=== PATIENT | female | born 1985 | race Caucasian/White ===

== ENCOUNTER 2018-04-15 12:21 | Emergency (ER) | payer OTHER, SELFPAY ==
--- NOTE | 2018-04-15 14:31 | RAD ---
TWO VIEWS LEFT FOREARM: History: Patient with left forearm pain. FINDINGS: AP and lateral views of the left forearm obtained. No evidence of left forearm fractures, subluxation s, or bony lesions seen. IMPRESSION: Normal two views left forearm. POS: C
--- NOTE | 2018-04-15 14:32 | RAD ---
THREE VIEWS LEFT WRIST: History: Pain. FINDINGS: AP, lateral, and oblique views of the left wrist obtained. There is no evidence of left wrist fractur es, subluxations, or bony lesions. IMPRESSION: Normal three views left wrist. POS: C
== END 2018-04-15 14:44 | disposition home or self-care (01) ==
LOC: ERS 12:21
DX: S46.912A Strain of unspecified muscle, fascia and tendon at shoulder and upper arm level, left arm, initial encounter (principal); M77.9 Enthesopathy, unspecified; X50.0XXA Overexertion from strenuous movement or load, initial encounter

== ENCOUNTER 2019-07-19 05:25 | Inpatient (IN) | payer OTHER ==
[2019-07-19] MEDS ORDERED: Ondansetron PF 4 MG/2 ML Vial IVP PRN ×3 (05:47→10:06)
[2019-07-19] MEDS ORDERED: Promethazine HCl 25 MG/ML VIAL IM PRN ×2 (05:47→08:12)
[2019-07-19] MEDS ORDERED: hydrALAZINE 20 MG/ML VIAL SLOW IVP PRN ×2 (05:47→10:06)
[2019-07-19] MEDS ORDERED: CEFAZOLIN 2 GM in Premix Bag 1 BAG IVPB SCH (05:47)
[2019-07-19] MEDS ORDERED: Bicitra 30 ML UDCUP PO SCH (05:47)
[2019-07-19 06:03] LABS: Hemoglobin 11.8 g/dL (12.0-16.0); Mean Corpuscular HGB CONC 35.5 g/dL (32.0-36.0); Mean Corpuscular Hemoglobin 33.5 pg (27.0-31.0); Mean Corpuscular Volume 94.3 fL (78.0-98.0); Mean Platelet Volume 7.5 fL (7.4-10.4); Platelet Count 261 thou/uL (130-400); RBC Distribution Width 12.4 % (11.5-14.5); Red Blood Cell (RBC) Count 3.53 mill/uL (4.20-5.40); White Blood Cell (WBC) Count 11.5 thou/uL (4.8-10.8)
[2019-07-19 06:08] VITALS: BMI 28.3
[2019-07-19 06:42] LABS: HBSAg Index 0.13 S/CO (0-0.99); Hep B Surf Ag Non-Reactive S/CO (NonReactive); Syphilis Antibody Nonreactive (Nonreactive); Syphilis Antibody Index 0.03 S/CO (<1.00 Non-Reactive)
[2019-07-19] MEDS: Lactated Ringer's 1,000 ML IV SCH ×2 (07:03→19:00)
[2019-07-19] MEDS ORDERED: Fentanyl 100 MCG/2 ML VIAL ONE (07:15)
[2019-07-19] MEDS ORDERED: MORPHINE 5 MG/10 ML PF VIAL ONE (07:15)
[2019-07-19] MEDS ORDERED: Ondansetron PF 4 MG/2 ML Vial ONE (07:16)
[2019-07-19] MEDS ORDERED: EPHEDRINE 25 MG/5 ML SYRINGE ONE (07:16)
[2019-07-19] MEDS ORDERED: Dexamethasone 4 mg/ml Vial ONE (07:16)
[2019-07-19] MEDS ORDERED: PHENYLEPHRINE-NS 100 MCG/ML 10 ML SYRINGE ONE (07:16)
[2019-07-19] MEDS ORDERED: Ketorolac Tromethamine 30 MG/ML VIAL ONE (07:16)
[2019-07-19] MEDS ORDERED: Oxytocin 10 UNITS/ML VIAL ONE (07:16)
[2019-07-19] MEDS ORDERED: Promethazine HCl 25 MG SUPP PR PRN (08:12)
[2019-07-19] MEDS ORDERED: diphenhydrAMINE 50 MG/ML VIAL IVP PRN (08:12)
[2019-07-19] MEDS ORDERED: HYDROmorphone 2 MG/ML VIAL SLOW IVP PRN (08:12)
[2019-07-19] MEDS ORDERED: Meperidine HCl/PF 25 MG/ML VIAL SLOW IVP PRN (08:12)
[2019-07-19] MEDS ORDERED: Naloxone HCl 0.4 mg/ml Vial IV PRN (08:12)
[2019-07-19] MEDS ORDERED: L&D-Morphine 4 MG/ML VIAL SLOW IVP PRN (08:12)
[2019-07-19] MEDS ORDERED: Naloxone HCl 0.4 mg/ml Vial IVP PRN ×2 (08:12)
[2019-07-19] MEDS ORDERED: Ondansetron HCl/PF 4 MG/2 ML Vial IVP PRN (08:12)
[2019-07-19] MEDS ORDERED: Communication Order-Pharmacy FS SCH (08:15)
[2019-07-19] MEDS ORDERED: NS / Oxytocin 40 units/1000ml 1,000 ML IV SCH (10:06)
[2019-07-19] MEDS ORDERED: Adacel (T-DAP) 0.5 ML SYRINGE IM ONE (10:06)
[2019-07-19] MEDS ORDERED: diphenhydrAMINE 25 MG CAP PO PRN (10:06)
[2019-07-19] MEDS ORDERED: Methylergonovine 0.2 MG/ML VIAL IM PRN (10:06)
[2019-07-19] MEDS ORDERED: Misoprostol 200 MCG TAB PR PRN (10:06)
--- NOTE | 2019-07-19 12:18 | OP ---
DATE OF PROCEDURE: 07/19/2019 PRIMARY SURGEON: Dr. Piter Hogan. RESIDENT SURGEON: Dr. Fatmata Ochoa. PROCEDURE PERFORMED: Repeat low transverse section. PREOPERATIVE DIAGNOSES: 1. Term intrauterine . 2. Previous x2. 3. Hepatitis C. 4. Anemia. POSTOPERATIVE DIAGNOSES: 1. Term intrauterine , delivered. 2. Repeat low transverse section. 3. Hepatitis C. 4. Anemia. ANESTHESIA: Spinal. INDICATIONS: This is a 33-year-old, G3, P2-0-0-2 at 39 weeks' gestation, who presents for a scheduled repeat . PROCEDURE IN DETAIL: After risks, benefits, and alternatives were explained to the patient, she gave informed consent. Preoperative antibiotics included cefazolin 2 g IV. The patient was taken back to the operating room, and spinal anesthesia was initiated. She was placed in supine position with left tilt and prepped and draped in the usual sterile fashion. The old scar was excised in an elliptical fashion, and the Pfannenstiel incision was then carried down to the level of the fascia using Bovie and the scalpel. The fascia was sharply nicked. The fascial cut was extended bilaterally with Eduardo scissors. The inferior and superior fascial edges were elevated with Cameron clamps, and the underlying rectus muscles were sharply dissected free using the scalpel. The midline of recti muscles were identified using hemostats. Eduardo scissors were used to enter midline through rectus muscles. A cut was made inferiorly along the midline of the rectus muscles. The peritoneum was then entered in the midline using blunt force. The peritoneum was extended inferiorly to create more room, paying close attention to the bladder. The recti muscles and peritoneum were then divided digitally and retracted manually. The bladder blade was placed. Bladder flap was created with Metzenbaum scissors. There was noted to be a small window. A low transverse score was made with the scalpel, and the uterus was entered in the midline with the scalpel. Clear fluid was immediately seen. Hysterotomy was extended manually. The infant was noted to be vertex and was easily delivered by fundal pressure. The mouth and nares were bulb suctioned. Cord was clamped and cut, and grossly normal female infant was handed to the waiting nurse. Cord blood was obtained. Placenta was manually extracted and found to be intact with three-vessel cord and discarded. The uterus was externalized, and the endometrium was curetted with a dry lap. The bladder blade was replaced, and the uterus was closed with a running locking #1 chromic suture followed by closure of the bladder flap using 2-[address] Following this, hemostasis was noted. Abdomen was irrigated superiorly. Seprafilm was then placed on the anterior portion of the uterus. The uterus was then internalized, and hysterotomy was again noted to be hemostatic. The rectus muscles were evaluated for bleeders, and bleeders were cauterized. The fascia was then closed using 0 Vicryl suture in a running nonlocking fashion. The subcutaneous tissue was irrigated, and bleeders were cauterized. The subcutaneous tissue was brought together using 2-0 plain gut in simple interrupted fashion. The skin was then closed using 4-0 monofilament. Fluffs and foam tapes were placed on the incision along with an ice pack. All counts were correct. The patient tolerated the procedure well, was taken to the recovery room in stable condition. ESTIMATED BLOOD LOSS: 710 mL. COMPLICATIONS: None. SPECIMENS: Cord blood sent to lab for blood type. FINDINGS: Grossly normal female infant with Apgars of 8 and 9 at one and five minutes respectively. weight of 3661 g or 8 pounds, 1 ounce. Grossly normal placenta with a 3 vessel cord discarded. DRAINS: Gonzalez to gravity, draining clear urine. Job ID: [id number] [facility]
[2019-07-19] MEDS: Ferrous Sulfate 325 MG TAB PO SCH (17:31)
[2019-07-19] MEDS: Ketorolac Tromethamine 30 MG/ML VIAL IVP PRN ×2 (17:44→23:46)
[2019-07-19] MEDS: Ibuprofen 800 MG TAB PO SCH (18:03)
[2019-07-19] MEDS ORDERED: HYDROcodone/Acetaminophen 5/325 mg Tablet PO PRN (20:15)
[2019-07-19] MEDS: Docusate Calcium (SURFAK) 240 MG CAP PO SCH (23:35)
[2019-07-20] MEDS: HYDROcodone/Acetaminophen 5/325 mg Tablet PO PRN ×5 (05:50→23:39)
[2019-07-20] MEDS: Simethicone Chewable 80 MG TAB PO PRN ×3 (05:51→20:48)
[2019-07-20 06:29] LABS: Hemoglobin 10.1 g/dL (12.0-16.0); Mean Corpuscular HGB CONC 34.5 g/dL (32.0-36.0); Mean Corpuscular Hemoglobin 33.2 pg (27.0-31.0); Mean Corpuscular Volume 96.2 fL (78.0-98.0); Mean Platelet Volume 7.2 fL (7.4-10.4); Platelet Count 205 thou/uL (130-400); RBC Distribution Width 12.4 % (11.5-14.5); Red Blood Cell (RBC) Count 3.03 mill/uL (4.20-5.40); White Blood Cell (WBC) Count 11.1 thou/uL (4.8-10.8)
[2019-07-20] MEDS: Ferrous Sulfate 325 MG TAB PO SCH ×2 (09:06→17:08)
[2019-07-20] MEDS: Ibuprofen 800 MG TAB PO SCH ×4 (09:12→23:11)
[2019-07-20] MEDS: Prenatal Vitamin 1 TAB PO SCH (09:12)
[2019-07-20] MEDS: Docusate Calcium (SURFAK) 240 MG CAP PO SCH ×2 (09:13→19:28)
[2019-07-20] MEDS: Lanolin Ointment 7 GM TUBE TOP PRN (20:48)
[2019-07-21] MEDS: HYDROcodone/Acetaminophen 5/325 mg Tablet PO PRN ×4 (03:39→21:30)
[2019-07-21] MEDS: Ibuprofen 800 MG TAB PO SCH ×3 (06:44→21:25)
[2019-07-21] MEDS: Ferrous Sulfate 325 MG TAB PO SCH ×2 (07:31→14:23)
[2019-07-21] MEDS: Simethicone Chewable 80 MG TAB PO PRN ×2 (08:29→17:36)
[2019-07-21] MEDS: Prenatal Vitamin 1 TAB PO SCH (08:29)
[2019-07-21] MEDS: Docusate Calcium (SURFAK) 240 MG CAP PO SCH ×2 (08:29→19:50)
[2019-07-21] MEDS: Lanolin Ointment 7 GM TUBE TOP PRN (19:50)
[2019-07-22] MEDS: HYDROcodone/Acetaminophen 5/325 mg Tablet PO PRN ×3 (05:08→13:19)
[2019-07-22] MEDS: Ibuprofen 800 MG TAB PO SCH ×2 (05:08→13:20)
[2019-07-22] MEDS: Docusate Calcium (SURFAK) 240 MG CAP PO SCH (08:25)
[2019-07-22] MEDS: Prenatal Vitamin 1 TAB PO SCH (08:25)
[2019-07-22] MEDS: Ferrous Sulfate 325 MG TAB PO SCH (08:27)
[2019-07-22 08:40] VITALS: BP 102/51; TEMP 99.1
== END 2019-07-22 14:00 | disposition home or self-care (01) | DRG 787 ==
LOC: L&D 05:25 → 3SW 10:49
PROVIDERS: ADMIT Obstetrics & Gynecology; ATTEND Obstetrics & Gynecology
PROC: 10D00Z1 Extraction of Products of Conception, Low, Open Approach (ICD-10-PCS; principal; 2019-07-19)
DX: O34.211 Maternal care for low transverse scar from previous cesarean delivery (principal); O98.42 Viral hepatitis complicating childbirth; Z3A.39 39 weeks gestation of pregnancy; Z37.0 Single live birth; O99.02 Anemia complicating childbirth; D64.9 Anemia, unspecified; B19.20 Unspecified viral hepatitis C without hepatic coma
CPT/HCPCS: 36415; 51702; 85027; 86780; 86850; 86900; 86901; 87340; J0690; J1100; J1885; J2274; J2405; J2590; J3010